=== PATIENT | female | born 1950 | race African-American/Black ===

== ENCOUNTER → 2021-03-15 | Outpatient (CLI) | payer OTHER | LOC: M.RAD 15:58 | PROVIDERS: ATTEND Internal Medicine | DX: M47.812 Spondylosis without myelopathy or radiculopathy, cervical region (principal) ==

== ENCOUNTER → 2021-04-05 | Outpatient (CLI) | payer OTHER ==
[2021-04-05 09:46] LABS: CHOLESTEROL 233 mg/dL (<200); HDL CHOLESTEROL 71 mg/dL (>40); LDL CHOLESTEROL 146 mg/dL (<100); TC:HDL 3.3 Ratio (Not establshd); TRIGLYCERIDE 83 mg/dL (<150); VLDL 17 mg/dL (<40)
[2021-04-05 09:48] LABS: SERUM ASSESSMENT Clear
== END ==
LOC: M.LAB 09:11
PROVIDERS: ATTEND Internal Medicine Cardiovascular Disease
DX: E78.00 Pure hypercholesterolemia, unspecified (principal)

== ENCOUNTER → 2021-04-12 | Outpatient (CLI) | payer OTHER ==
--- NOTE | 2021-04-12 10:29 | 2DMMODE ---
[place] [address] 2 D/M-MODE ECHOCARDIOGRAM Name: LAI RAMOS Room: [facility]#: [id number] Admission: 04/12/21 Attend Phys: Chapito Gerard, Discharge: Date of : 50 Date of Service: 04/12/21 1029 Report #: [id number] THIS REPORT FOR: cc: Christa Patino MD, Lin W. MD Blick, David R. MD [facility] ~ APPROVED REPORT Study performed: 04/12/2021 10:07:13 EXAM: Comprehensive 2D, Doppler, and color-flow Echocardiogram Patient Location: Out-Patient BSA: 1.88 HR: 56 bpm BP: 130/70 mmHg Other Information Study Quality: Good Indications Hypertension/HDD 2D Dimensions IVSd: 12.05 (7-11mm) LVOT Diam: 20.04 (18-24mm) LVDd: 42.02 mm PWd: 7.87 (7-11mm) Ascending Ao: 26.97 (22-36mm) LVDs: 25.31 (25-40mm) Aortic Root: 25.16 mm Volumes Left Atrial Volume (Systole) LA ESV Index: 18.30 mL/m2 Aortic Valve AoV Peak Naeem.: 1.44 m/s AO Peak Gr.: 8.25 mmHg LVOT Max P.13 mmHg AO Mean Gr.: 4.37 mmHg LVOT Mean P.70 mmHg LVOT Max V: 1.24 m/s AO V2 VTI: 31.87 cm LVOT Mean V: 0.75 m/s CORIE (VTI): 2.97 cm2 LVOT V1 VTI: 30.04 cm Mitral Valve E/A Ratio: 1.23 [place] [address] 2 D/M-MODE ECHOCARDIOGRAM Name: LAI RAMOS Room: [facility]#: [id number] Admission: 04/12/21 Attend Phys: Chapito Gerard, Discharge: Date of : 50 Date of Service: 04/12/21 1029 Report #: [id number] MV Decel. Time: 188.55 ms MV E Max Naeem.: 0.87 m/s MV PHT: 54.68 ms MVA (PHT): 4.02 cm2 TDI E/Lateral E': 6.69 E/Medial E': 7.91 Medial E' Naeem.: 0.11 m/s Lateral E' Naeem.: 0.13 m/s Pulmonary Valve PV Peak Naeem.: 0.91 m/s PV Peak Gr.: 3.32 mmHg Tricuspid Valve RAP Estimate: 5.00 mmHg TR Peak Gr.: 21.46 mmHg RVSP: 26.46 mmHg PA Pressure: 26.46 mmHg Left Ventricle The left ventricle is normal size. There is normal LV segmental wall motion. There is normal left ventricular wall thickness. Left ventricular systolic function is normal. The left ventricular ejection fraction is within the normal range. LVEF is 55-60%. The left ventricular diastolic function is normal. Right Ventricle The right ventricle is normal size. The right ventricular systolic function is normal. Atria The left atrium size is normal. The right atrium size is normal. Aortic Valve Mild aortic valve sclerosis. No aortic regurgitation is present. There is no aortic valvular stenosis. Mitral Valve The mitral valve is normal in structure. Mild mitral regurgitation. No evidence of mitral valve stenosis. Tricuspid Valve The tricuspid valve is normal in structure. Mild tricuspid regurgitation[place] [address] 2 D/M-MODE ECHOCARDIOGRAM Name: RACHELLAI MIXON Room: [facility]#: [id number] Admission: 04/12/21 Attend Phys: Chapito Gerard, Discharge: Date of : 50 Date of Service: 04/12/21 1029 Report #: [id number] Pulmonic valve is not well visualized. Mild pulmonic regurgitation. Great Vessels The aortic root is normal in size. IVC is normal in size and collapses >50% with inspiration. Pericardium There is no pericardial effusion. <Conclusion> LVEF is 55-60%. Mild aortic valve sclerosis. Mild mitral regurgitation. <ELECTRONICALLY SIGNED> By: Sandeep Olivas MD, [facility] 04/12/21 1029 1029 1029 Sandeep Olivas MD, FAC /INF
== END ==
LOC: M.CRD 08:44
PROVIDERS: ATTEND Internal Medicine Cardiovascular Disease
DX: I08.8 Other rheumatic multiple valve diseases (principal); I10 Essential (primary) hypertension; R94.31 Abnormal electrocardiogram [ECG] [EKG]

== ENCOUNTER 2021-05-15 06:02 | Emergency (ER) | payer OTHER ==
[~2021-05-15] VITALS: Ht 170.2 cm; Wt 83.5 kg
[2021-05-15] MEDS ORDERED: LOPRESSOR50 MG PO (06:34)
[2021-05-15] MEDS ORDERED: CHILDREN'S ASPI81 M1 PO (06:34)
[2021-05-15] MEDS ORDERED: ZESTRIL5 MG PO (06:34)
[2021-05-15] MEDS ORDERED: FLONASE 0.05%50 MCG NARES (06:34)
[2021-05-15 06:35] LABS: ABSOLUTE EOSINOPHILS 0.4 thou/uL (0.0-0.7); ABSOLUTE LYMPHOCYTES 2.8 thou/uL (0.8-5.3); ABSOLUTE MONOCYTES 0.4 thou/uL (0.0-1.2); ABSOLUTE NEUTROPHILS 2.7 thou/uL (1.6-8.1); BASOPHILS 0.4 %; EOSINOPHILS 6.1 %; HEMATOCRIT 38.3 % (37.0-47.0); HEMOGLOBIN 12.7 gm/dL (12.0-15.0); LYMPHOCYTES 44.4 %; MCH 28.9 pg (26.0-34.0); MCHC 33.2 g/dL (28.0-37.0); MONOCYTES 6.8 %; MPV 9.1 fl. (7.2-11.1); NUCLEATED RBCS 0 /100WBC; PLATELET COUNT* 176 thou/uL (150-400); POLYS 42.3 %; WBC 6.4 thou/uL (4.0-11.0)
[2021-05-15] MEDS ORDERED: OMEPRAZOLE40 MG PO (06:35)
[2021-05-15] MEDS ORDERED: ZETIA10 MG PO (06:36)
[2021-05-15 07:16] LABS: APTT 24.3 Seconds (25.0-31.3); PROTIME 10.5 Seconds (9.20-11.50)
[2021-05-15 07:50] LABS: CALCIUM 9.4 mg/dL (8.5-10.1); CREATININE 0.8 mg/dL (0.6-1.3); POTASSIUM 4.5 mmol/L (3.5-5.1)
[2021-05-15 07:59] LABS: ALBUMIN 3.8 g/dL (3.4-5.0); TOTAL BILIRUBIN 0.3 mg/dL (<0.1-1.0); TOTAL PROTEIN 7.6 g/dL (6.4-8.2)
[2021-05-15 09:42] LABS: URINE BILIRUBIN NEGATIVE (Negative); URINE BLOOD NEGATIVE (Negative); URINE CLARITY CLEAR; URINE COLOR YELLOW; URINE GLUCOSE-RANDOM NEGATIVE (Negative); URINE KETONES NEGATIVE (Negative); URINE LEUKOCYTES-REFLEX TRACE (Negative); URINE NITRITE-REFLEX NEGATIVE (Negative); URINE PROTEIN NEGATIVE (Negative); URINE UROBILINOGEN 0.2 E.U./dl (0.2-1.0)
[2021-05-15 10:09] LABS: CASTS None Seen /LPF (None Seen); SQUAMOUS 0-3 Few /LPF (0-3)
[2021-05-15 10:10] LABS: URINE RBC None Seen /HPF (0-2); URINE WBC-REFLEX 0-5 Rare /HPF (0-5)
[2021-05-15 10:11] LABS: BACTERIA-REFLEX None Seen /HPF (None Seen); CRYSTALS None Seen /LPF (None Seen)
[2021-05-15] MEDS ORDERED: HYDROCODON-ACE1 EAC7 PO (10:38)
[2021-05-15] MEDS ORDERED: LEVOFLOXACIN750 MG PO (10:38)
[2021-05-15] MEDS ORDERED: ZOFRAN ODT4 MG DISSOLVE (10:38)
[2021-05-15 10:50] VITALS: BP 157/66
--- NOTE | 2021-05-15 12:00 | EKG ---
[place] [address] ELECTROCARDIOGRAM REPORT Name: RACHELLAI Room: [facility]#: [id number] Admission: 05/15/21 Attend Phys: Discharge: 05/15/21 Date of : 50 Date of Service: 05/15/21604 Report #: [id number] THIS REPORT FOR: //name// [facility] ED Test Date: 2021-05-15 Test Time: 06:05:51 Pat Name: LAI RAMOS Department: Room: Gender: F Front Desk Attendant: : 1950 Requested By: Angeles Monique Order Number: [id number] MD: Sandeep Olivas Measurements Intervals [place] Rate: 86 P: 54 AR: 153 QRS: 56 QRSD: 106 T: -53 QT: 346 QTc: 414 Interpretive Statements Sinus rhythm Probable left atrial enlargement Left ventricular hypertrophy Inferior infarct, age indeterminate ST elevation, consider early repolarization No previous ECG available for comparison Electronically Signed On 05-15-2021 12:00:22 PRICE LISTER by Sandeep Olivas [email or web address] <ELECTRONICALLY SIGNED> By: Sandeep Olivas MD, FACC 05/15/21 1200 [id number] Sandeep Olivas MD, FAC /EPI
== END 2021-05-15 10:50 | disposition home or self-care (01) ==
LOC: M.ERS 06:02
PROVIDERS: Emergency Medicine Emergency Medical Services; Personal Emergency Response Attendant
DX: R10.13 Epigastric pain (principal); Z20.822 Contact with and (suspected) exposure to COVID-19; R10.11 Right upper quadrant pain; I10 Essential (primary) hypertension; E78.5 Hyperlipidemia, unspecified; Z88.1 Allergy status to other antibiotic agents

== ENCOUNTER 2021-06-17 17:35 | Emergency (ER) | payer OTHER ==
[~2021-06-17] VITALS: Ht 170.2 cm; Wt 68.0 kg
[~2021-06-17 17:35] MED LIST: CHILDREN'S ASPI81 M1 PO; FLONASE 0.05%50 MCG NARES; HYDROCODON-ACE1 EAC7 PO; LEVOFLOXACIN750 MG PO; LOPRESSOR50 MG PO; OMEPRAZOLE40 MG PO; ZESTRIL5 MG PO; ZETIA10 MG PO; ZOFRAN ODT4 MG DISSOLVE
[2021-06-17 20:04] LABS: URINE BILIRUBIN NEGATIVE (Negative); URINE BLOOD TRACE (Negative); URINE CLARITY CLOUDY; URINE COLOR YELLOW; URINE GLUCOSE-RANDOM NEGATIVE (Negative); URINE KETONES NEGATIVE (Negative); URINE LEUKOCYTES 1+ (Negative); URINE NITRITE NEGATIVE (Negative); URINE PROTEIN NEGATIVE (Negative); URINE SPECIFIC GRAVITY 1.015 (1.005-1.030); URINE UROBILINOGEN 0.2 E.U./dl (0.2-1.0)
[2021-06-17 20:14] LABS: SQUAMOUS 0-3 Few /LPF (0-3); URINE WBC 0-5 Rare /HPF (0-5)
[2021-06-17 20:15] LABS: BACTERIA None Seen /HPF (None Seen); CASTS None Seen /LPF (None Seen); CRYSTALS None Seen /LPF (None Seen); URINE RBC 0-2 Rare /HPF (0-2)
[2021-06-17 20:25] LABS: ABSOLUTE LYMPHOCYTES 1.1 thou/uL (0.8-5.3); ABSOLUTE MONOCYTES 0.8 thou/uL (0.0-1.2); ABSOLUTE NEUTROPHILS 3.5 thou/uL (1.6-8.1); BASOPHILS 0.3 %; EOSINOPHILS 0.8 %; HEMATOCRIT 33.4 % (37.0-47.0); HEMOGLOBIN 11.4 gm/dL (12.0-15.0); LYMPHOCYTES 20.5 %; MCH 28.6 pg (26.0-34.0); MCHC 34.1 g/dL (28.0-37.0); MCV 83.9 fL (80.0-100.0); MPV 9.9 fl. (7.2-11.1); NUCLEATED RBCS 0 /100WBC; PLATELET COUNT* 135 thou/uL (150-400); POLYS 64.4 %; RBC 3.98 mil/uL (4.20-5.00); RDW-CV 12.5 % (10.5-14.5); WBC 5.5 thou/uL (4.0-11.0)
[2021-06-17 20:31] LABS: CALCIUM 8.3 mg/dL (8.5-10.1); CREATININE 1.1 mg/dL (0.6-1.3)
[2021-06-17 20:42] LABS: ALBUMIN 3.2 g/dL (3.4-5.0); TOTAL BILIRUBIN 0.4 mg/dL (<0.1-1.0); TOTAL PROTEIN 7.1 g/dL (6.4-8.2)
[2021-06-17] MEDS ORDERED: AUGMENTIN 875-1 EACH PO (23:56)
[2021-06-18 00:15] VITALS: BP 126/78
--- NOTE | 2021-06-18 13:10 | EKG ---
[place] [address] ELECTROCARDIOGRAM REPORT Name: LAI RAMOS [id number] Admission: 06/17/21 Attend Phys: Discharge: 06/18/21 Date of : 50 Date of Service: 06/17/211815 Report #: [id number] THIS REPORT FOR: //name// [facility] ED Test Date: 2021-06-17 Test Time: 18:16:20 Pat Name: LAI RAMOS Department: Room: Gender: Shirt Closer: [id number] : 1950 Requested By: Derek Rodriguez Order Number: [id number] MD: Angel Quintana Measurements Intervals [place] Rate: 79 P: 64 TN: 134 QRS: 64 QRSD: 111 T: 48 QT: 351 QTc: 403 Interpretive Statements Sinus rhythm Left ventricular hypertrophy Anterior Q waves, possibly due to LVH Baseline wander in lead(s) II,III,aVF Compared to ECG 05/15/2021 06:05:51 Nondiagnostic inferior Q waves versus ST (T wave) deviation no longer present Electronically Signed On 06-18-2021 13:10:33 SECURITY AGENT by Angel Quintana [email or web address] <ELECTRONICALLY SIGNED> By: Angel Quintana MD, [facility] 06/18/21 1310 15 181 Angel Quintana MD, [facility] /EPI
== END 2021-06-18 00:15 | disposition home or self-care (01) ==
LOC: M.ERS 17:35
PROVIDERS: Physician Assistant
DX: U07.1 COVID-19 (principal); J18.9 Pneumonia, unspecified organism; R07.89 Other chest pain; M79.661 Pain in right lower leg; I10 Essential (primary) hypertension; E78.5 Hyperlipidemia, unspecified; Z86.73 Personal history of transient ischemic attack (TIA), and cerebral infarction without residual deficits; Z85.3 Personal history of malignant neoplasm of breast; Z88.1 Allergy status to other antibiotic agents; Z79.899 Other long term (current) drug therapy; Z79.82 Long term (current) use of aspirin